=== PATIENT | male | born 2005 | race Caucasian/White ===

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

== ENCOUNTER 2023-11-13 18:07 | Outpatient (REF) | payer OTHER, MEDICAID, SELFPAY | END 2023-11-13 18:08 | disposition home or self-care (01) | LOC: HO.HHCLNP 18:07 | PROVIDERS: Visit Provider Nurse Practitioner Family | DX: J02.9 Acute pharyngitis, unspecified (principal) | CPT/HCPCS: 87070; 87147 ==